=== PATIENT | female | born 1935 | race Caucasian/White ===

== ENCOUNTER 2024-04-17 01:51 | Emergency (ER) | payer OTHER, MEDICAID ==
[~2024-04-17] VITALS: Ht 160 cm; Wt 64.0 kg
[2024-04-17 01:58] VITALS: O2SAT 98
[2024-04-17 02:26] VITALS: TEMP 36.50292
[2024-04-17] MEDS: ACETAMINOPHEN 325MG TABLET PO ONE (03:14)
[2024-04-17 05:45] VITALS: BP 107/45; PULSE 64; RESP 17; O2SAT 93
[2024-04-17] MEDS ORDERED: ACET-2708 MT (05:48)
== END 2024-04-17 05:55 | disposition home or self-care (01) ==
LOC: ER 01:51
DX: S09.8XXA Other specified injuries of head, initial encounter (principal); M25.561 Pain in right knee; I10 Essential (primary) hypertension; X58.XXXA Exposure to other specified factors, initial encounter; Y93.89 Activity, other specified; Y92.89 Other specified places as the place of occurrence of the external cause; Y99.8 Other external cause status
CPT/HCPCS: 73502; 73560; 99284